=== PATIENT | male | born 1950 | race Asian ===

== ENCOUNTER 2018-09-26 18:51 | Emergency (ER) | payer OTHER, SELFPAY ==
[2018-09-26 18:54] VITALS: BP 120/72; PULSE 99; RESP 22; TEMP 38.5; O2SAT 96; BMI 26.0
--- NOTE | 2018-09-26 19:00 | DI.RAD.S_ITS ---
PROCEDURE: XR CHEST 2V INDICATIONS: cough, fever TECHNIQUE: 2 views of the chest were acquired. COMPARISON: None. FINDINGS: Surgical changes and devices: None. Lungs and pleura: There are patchy right perihilar air space opacities compatible with consolidation. No pleural effusions or pneumothorax. Mediastinum: Mediastinal contours are normal. Heart size is normal. Bones and chest wall: No suspicious bony abnormalities. Soft tissues appear unremarkable. IMPRESSION: 1. Patchy right perihilar consolidation consistent with pneumonia given clinical history. Dictated by: Pipe Yu M.D. on 09/26/2018 at 20:48 Approved by: Pipe Yu M.D. on 09/26/2018 at 20:49
[2018-09-26 19:23] LABS: Influenza A and B by PCR Rapid Negative (Negative)
[2018-09-26 19:30] VITALS: BP 117/72; PULSE 92; RESP 25; O2SAT 97
[2018-09-26 19:36] VITALS: TEMP 38.5
[2018-09-26] MEDS: ACETAMINOPHEN 325 MG TABLET 975 MG PO (19:36)
[2018-09-26 20:38] VITALS: TEMP 36.9
[2018-09-26] MEDS: levoFLOXacin 250 MG TABLET 750 MG PO (21:01)
[2018-09-26 21:28] VITALS: BP 107/58; PULSE 90
[2018-09-26 21:40] VITALS: BP 113/59; PULSE 89; RESP 24; O2SAT 96
--- NOTE | 2018-09-27 03:41 | ED_ITS ---
HPI - URI/Sore Throat General Chief Complaint: Upper Respiratory Symptoms Stated Complaint: fever/cough/heavy breathing Time Seen by Provider: 09/26/18 18:55 Source: patient and family Mode of arrival: ambulatory Limitations: no limitations History of Present Illness HPI Narrative: 68-year-old male nonsmoker with no medical history presents with his son and a chief complaint of cough with occasional yellowish sputum and fever for the past few days. He is visiting from [place] and has been exposed to other ill persons. He has had no nausea, vomiting or diarrhea. He does not denies any body aches. He largely feels pretty well but the fever started kicking in today. He denies any recent hospitalizations Related Data Previous Rx's Medication Instructions Recorded levofloxacin [Levaquin] 750 mg PO DAILY #7 tab 09/26/18 Allergies Allergy/AdvReac Type Severity Reaction Status Date / Time No Known Drug Allergies Allergy Verified 09/26/18 19:00 Review of Systems Constitutional Reports chills, Reports fever(s), Denies lethargy and Denies weakness Eyes Denies change in vision, Denies eye discharge, Denies irritation and Denies loss of vision ENT Ears, Nose, Mouth, and Throat: Denies change in voice, Denies neck pain and Denies sore throat Cardiovascular Denies chest pain, Denies irregular heart rhythm, Denies lightheadedness, Denies palpitations, Denies dyspnea, Denies dyspnea on exertion and Denies orthopnea Respiratory Reports cough, Denies dyspnea, Denies dyspnea on exertion and Denies wheezing Gastrointestinal Gastrointestinal: Denies abdominal pain, Denies change in bowel habits, Denies diarrhea, Denies nausea and Denies vomiting Genitourinary Denies hematuria, Denies flank pain, Denies urinary incontinence and Denies urinary urgency Musculoskeletal Denies neck pain Integumentary/Breasts Denies pruritus, Denies erythema, Denies rash and Denies wounds Neurologic Denies confusion, Denies loss of vision and Denies weakness Psychiatric Denies anxiety, Denies confusion, Denies depression, Denies homicidal ideation and Denies suicidal ideation Endocrine Denies palpitations Hematologic/Lymphatic Denies easy bruising Allergic/Immunologic Denies wheezing PFSH Social History Smoking Status: Never smoker Social History Smoking Status: Never smoker Exam Narrative Exam Narrative: GENERAL: 68-year-old male appears stated age, he is in no obvious significant distress but does the occasional harsh cough HEAD: Atraumatic. Normocephalic. No temporal or scalp tenderness. EYES: Pupils equal round and reactive. Extraocular motions intact. No scleral icterus. No injection or drainage. ENT: Nose without bleeding, purulent drainage or septal hematoma. Throat without erythema, tonsillar hypertrophy or exudate. Uvula midline. Airway patent. NECK: Trachea midline. No JVD or lymphadenopathy. Supple, nontender, no meningeal signs. CARDIOVASCULAR: Regular rate and rhythm without murmurs, gallops, or rubs. RESPIRATORY: Coarse lung sounds bilaterally GASTROINTESTINAL: Abdomen soft, non-tender, nondistended. No hepato-splenomegaly , or palpable masses. No guarding. EXTREMITIES: No clubbing, cyanosis, or edema. No joint tenderness, effusion, or edema noted. BACK: Nontender without deformity or crepitance. No flank tenderness. NEURO: AOx3. SKIN: No rash or erythema. Initial Vital Signs Initial Vital Signs: Vital Signs Temperature 101.3 F H 09/26/18 18:54 Pulse Rate 99 H 09/26/18 18:54 Respiratory Rate 22 09/26/18 18:54 Blood Pressure 120/72 09/26/18 18:54 Pulse Oximetry 96 09/26/18 18:54 Course Orders Ordered: ED Orders 09/26/18 19:00 CXR [XR chest 2V] Stat Influenza A and B by PCR Rapid Stat Discontinued Medications Acetaminophen (Tylenol) 975 mg PO NOW ONE Stop: 09/26/18 19:30 Last Admin: 09/26/18 19:36 Dose: 975 mg Levofloxacin (Levaquin) 750 mg PO NOW ONE Stop: 09/26/18 20:54 Last Admin: 09/26/18 21:01 Dose: 750 mg Vital Signs - 8 hr 09/26/18 20:38 09/26/18 21:28 09/26/18 21:40 Temperature 98.4 F Pulse Rate 90 89 Respiratory Rate 24 Blood Pressure 113/59 L Blood Pressure [Left Arm] 107/58 L Pulse Oximetry 96 MDM - URI/Sore Throat Lab Data Lab Results 09/26/18 Range/Units 19:00 Influenza A & B (PCR) Negative (Negative) MDM Narrative Medical decision making narrative: 68-year-old male with mild respiratory symptoms and fever has chest x-ray consistent with pneumonia and a negative flu swab. He is hemodynamically stable and we stand little to gain by drawing labs. Patient given return precautions and he and son demonstrate their understanding by verbalization and repeating back these instructions Discharge Plan Departure Patient Disposition: Home Clinical Impression: Pneumonia Qualifiers: Pneumonia type: due to unspecified organism Laterality: unspecified laterality Lung location: unspecified part of lung Qualified Code(s): J18.9 - Pneumonia, unspecified organism Discharge Date/Time: 09/26/18 21:40 Interventions: ED Discharge Assessment Last Done: 09/26/18 21:40 Instructions: DI for Pneumonia -- Adult Activity Restrictions/Additional Instructions: *You have been diagnosed with [ pneumonia ] *What to do: *Take medications as directed *Follow up with your primary care provider in 2-3 days, call for an appointment. Let them know you were seen in the Emergency Department and that we ask that you be seen in follow up *Return to ER if you should have any new, worsening or concerning symptoms Prescriptions: New levofloxacin [Levaquin] 750 mg tablet 750 mg PO DAILY Qty: 7 RF: 0
== END 2018-09-26 21:40 | disposition home or self-care (01) ==
PROVIDERS: Emergency Provider Emergency Medicine
DX: J18.9 Pneumonia, unspecified organism (principal)
CPT/HCPCS: 71046; 87400; 99282; 99283